=== PATIENT | male | born 1980 | race Caucasian/White ===

== ENCOUNTER 2022-03-30 11:07 | Outpatient (CLI) | payer OTHER, SELFPAY ==
--- NOTE | 2022-03-30 09:53 | DI.RAD_ITS ---
Exam(s) XR HIP LT COMPLETE AP PELVIS EXAM: XR HIP LT COMPLETE AP PELVIS CLINICAL HISTORY: pain in hip. TECHNIQUE: 2D digital imaging was performed of the left hip. Two views were obtained. AP pelvis an d lateral left hip views were obtained. COMPARISON: No exams were available for comparison FINDINGS: BONES: No acute fracture is present. No bony destructive lesion is seen. JOINTS: No dislocation present. There are mild degenerative changes seen at the left hip with subchon dral sclerosis and small subchondral cysts.. SOFT TISSUE: Normal. IMPRESSION: Mild degenerative changes of the left hip. DATA REPOSITORY: RADIATION DOSE DELIVERED:
== END 2022-03-30 11:08 | disposition home or self-care (01) ==
LOC: DIORS 11:10
PROVIDERS: Visit Provider Physician Assistant Surgical
DX: M16.12 Unilateral primary osteoarthritis, left hip (principal)
CPT/HCPCS: 73502

== ENCOUNTER → 2022-04-20 00:48 | Outpatient (CLI) | payer OTHER, SELFPAY ==
--- NOTE | 2022-04-20 08:30 | DI.RAD_ITS ---
Exam(s) RF JOINT INJECTION FLUORO GUID EXAM: RF JOINT INJECTION FLUORO GUID CLINICAL HISTORY: L HIP INJ UNDER FLUORO, LT HIP PAIN, M25.552 TECHNIQUE: Fluoroscopy provided. Radiologist not present. CONTRAST MATERIAL: None COMPARISON: No exams were available for comparison FINDINGS: Fluoroscopy was provided for therapeutic left hip joint injection. Submitted image(s) reveal intra-articular position of needle. Please refer to the procedure report for complete details. Cumulative Dose: Souravr=9 7 mGy IMPRESSION: RADIATION DOSE DELIVERED:
[2022-04-20] MEDS: Bupivacaine 0.5% Pres-Free 30 ML VIAL 5 ML IJ (15:15)
[2022-04-20] MEDS: Omnipaque 300 MG/ML 10 ML BTL IJ (15:15)
[2022-04-20] MEDS: methylPREDNISolone ACETATE 80 MG/ML VIAL IM (15:15)
--- NOTE | 2022-04-20 15:23 | W.PROCNOTE ---
Date of service: 04/20/22 Time of Service: 15:23 Procedure Note Date of procedure: 04/20/22 Procedure: Left Hip Injection Surgeon/Proceduralist/Physician: Tre Edward Procedure Diagnosis: Left Hip Pain Procedure Indications: Audie has had persistent pain of the LEFT hip and groin. Noninvasive measures have been tried. To serve as both diagnostic and therapeutic, an injection under fluoroscopy was recommended. I had discussed the risks of the procedure and the patient elected to proceed. Procedure Description: Audie was greeted in the flouroscopy room. The correct side was identified and the consent was reviewed with the patient and signed. The patient was then placed in the supine position on the fluoroscopy table. The LEFT hip was then prepped with Chloraprep. The anterolateral injection starting point was identiifed by bony landmarks and fluoroscopy. The skin and soft tissue in the tract of the injection was anesthetized with 1% Lidocaine. A spinal needle was then inserted deep into the hip joint at the level of the lateral femoral neck under fluoroscopic guidance. A small amount of Omnipaque solution was injected to confirm intraarticular placement. Once confirmed, the hip was injected with 6cc of 0.5% Bupivicaine and 80mg of Depo-Medrol. A bandaid was placed on the injection site. The patient tolerated the procedure well.
== END ==
PROVIDERS: Visit Provider Student in an Organized Health Care Education/Training Program
DX: M25.552 Pain in left hip (principal)
CPT/HCPCS: 20610; 77002; J1040